=== PATIENT | male | born 1945 | race Caucasian/White ===

== ENCOUNTER 2020-12-12 04:13 | Inpatient (IN) | payer MEDICARE, BC ==
[~2020-12-12] VITALS: Ht 172.7 cm; Wt 87.8 kg
[2020-12-12] MEDS ORDERED: heparin 25,000 UNIT/250ml bag 250 ML IV SCH (04:30)
[2020-12-12] MEDS ORDERED: heparin 10,000 units/1 ML INJ IV PRN (04:45)
[2020-12-12 05:08] LABS: BASOPHILS # (AUTO) 0.1 X10'3 (0-0.2); BASOPHILS % (AUTO) 1.5 % (0-1); EOSINOPHILS % (AUTO) 0.2 % (0-6); HEMATOCRIT 47.9 % (42.0-52.0); HEMOGLOBIN 16.2 g/dl (14.0-17.9); LYMPHOCYTES # (AUTO) 0.7 X10'3 (1.1-4.8); LYMPHOCYTES % (AUTO) 16.9 % (21-51); MEAN CORPUSCULAR HEMOGLOBIN 30.9 PG (27.0-31.0); MEAN CORPUSCULAR HGB CONC 33.7 g/dL (33.0-36.5); MEAN CORPUSCULAR VOLUME 91.4 FL (78-98); MEAN PLATELET VOLUME 7.6 FL (7.4-10.4); MONOCYTES # (AUTO) 0.7 X10'3 (0-0.9); MONOCYTES % (AUTO) 15.9 % (2-12); NEUTROPHILS # (AUTO) 2.8 X10'3 (1.8-7.7); NEUTROPHILS % (AUTO) 65.5 % (42-75); PLATELET COUNT 138 X10'3 (140-440); RED BLOOD COUNT 5.24 X10'6 (4.70-6.10); RED CELL DISTRIBUTION WIDTH 13.5 % (11.5-14.5); WHITE BLOOD COUNT 4.3 X10'3 (4.5-11.0)
[2020-12-12 05:11] LABS: ALANINE AMINOTRANSFERASE 45 U/L (12-78); ALBUMIN 3.2 G/DL (3.4-5.0); ALBUMIN/GLOBULIN RATIO 0.8 (1.1-1.5); ALKALINE PHOSPHATASE 90 IU/L (46-116); ANION GAP 11 (8-16); ASPARTATE AMINO TRANSFERASE 57 U/L (10-37); BILIRUBIN,TOTAL 0.6 MG/DL (0.1-1.0); BLOOD UREA NITROGEN 15 MG/DL (7-18); CHLORIDE 102 MMOL/L (99-107); CREATININE 1.15 MG/DL (0.60-1.10); GLUCOSE 103 MG/DL (70-104); POTASSIUM 3.1 MMOL/L (3.5-5.1); SODIUM 139 MMOL/L (135-145); TOTAL CARBON DIOXIDE 26.5 MMOL/L (24-32); eGFR 62 ML/MIN
[2020-12-12 05:19] LABS: MAGNESIUM 2.7 MG/DL (1.5-2.4)
[2020-12-12 05:23] LABS: PARTIAL THROMBOPLASTIN TIME 98 SECONDS (22-32)
[2020-12-12] MEDS ORDERED: HYDR25TA5 PO (05:35)
[2020-12-12] MEDS ORDERED: LOSA25TA96 PO (05:35)
[2020-12-12 05:37] LABS: PLATELET ESTIMATE DECREASED; TOTAL CELLS COUNTED 100
[2020-12-12] MEDS ORDERED: normal saline 1000ml 1,000 ML IV SCH (05:50)
[2020-12-12] MEDS ORDERED: aminophylline 250mg/10ml inj. IV PRN (05:50)
[2020-12-12] MEDS ORDERED: metoprolol tartrate 1mg/ml inj IV PRN (05:50)
[2020-12-12] MEDS ORDERED: ondansetron/PF 4mg/2ml inj IV PRN (05:50)
[2020-12-12] MEDS ORDERED: PERFLUTREN PROTEIN-A MICROSPHR (Optison) 0.22 MG/ML 3ML VIAL IV PRN (05:50)
[2020-12-12] MEDS ORDERED: acetaminophen 325mg tablet PO PRN (05:50)
[2020-12-12] MEDS ORDERED: magnesium hydroxide 30ml (MOM) UD suspension PO PRN (05:50)
[2020-12-12] MEDS ORDERED: regadenoson 0.4mg/5ml syringe IV PRN (05:50)
[2020-12-12] MEDS ORDERED: potassium Cl 40MEQ/1/2NS 520ml 520 ML IV PRN ×2 (05:50)
[2020-12-12] MEDS ORDERED: potassium Cl 20 mEq SR tablet PO PRN ×2 (05:50)
[2020-12-12] MEDS ORDERED: mag hydrox/Alum hydrox/simeth 30ml oral suspension PO PRN (05:50)
[2020-12-12] MEDS ORDERED: nitroGLYCERIN 0.4mg SUBLingual tab SL PRN (05:50)
[2020-12-12] MEDS ORDERED: HYDROchlorothiazide 25mg tablet PO SCH (08:00)
[2020-12-12] MEDS ORDERED: K and/or MAG REPLACEMENT MC SCH (08:00)
[2020-12-12] MEDS ORDERED: docusate sod 100mg capsule PO SCH (08:00)
[2020-12-12] MEDS ORDERED: aspirin 325mg tablet, delayed-release (Ecotrin) PO SCH (08:00)
[2020-12-12] MEDS ORDERED: losartan 25mg tablet PO SCH (08:00)
[2020-12-12 08:30] LABS: D-DIMER 0.98 MG/L FEU (0-0.50)
[2020-12-12 08:33] LABS: C-REACTIVE PROTEIN 0.67 MG/DL (0.0-0.5); FERRITIN 2077 NG/ML (26-388); LACTATE DEHYDROGENASE 244 U/L (85-227)
[2020-12-12 08:46] VITALS: BP 147/89
[2020-12-12 10:00] VITALS: BP 138/80
[2020-12-12] MEDS ORDERED: iohexol 350MG/ML 100ml bottle IV ONE (11:04)
[2020-12-12] MEDS ORDERED: ASPI-1071 PO (13:53)
[2020-12-12] MEDS ORDERED: LISI10TA27 PO (13:53)
[2020-12-12] MEDS ORDERED: POTA20TA19 PO (13:54)
[2020-12-12] MEDS ORDERED: FURO20TA4 PO (13:55)
[2020-12-12 14:00] VITALS: BP 161/89
--- NOTE | 2020-12-12 14:25 | NUR ---
Entered pt room to get pt ready for stress test and pt said he did not want any further tests. Pt stated Dr. Youngblood came up and is discharging him today and said he will follow up with his audio video technician in 2 weeks. Informed Nuc Med of pt and request to cancel stress test and CTA.
[2020-12-12 17:00] VITALS: BP 152/93
--- NOTE | 2020-12-12 18:33 | NUR ---
received report from day RN. noted pt tele and IV discontinued and dressed. waiting for ride from .
--- NOTE | 2020-12-12 19:12 | NUR ---
Pt. discharged home with his .Pt. was wheeled out side to parking lot ,placed in the back of his car.
== END 2020-12-12 19:07 | disposition home or self-care (01) | DRG 280 ==
LOC: ER 04:13 → ED HOLD 05:50 → ORTHO 4S 07:25
PROVIDERS: ADMIT Internal Medicine; ATTEND Internal Medicine
DX: I21.4 Non-ST elevation (NSTEMI) myocardial infarction (principal); U07.1 COVID-19; I12.9 Hypertensive chronic kidney disease with stage 1 through stage 4 chronic kidney disease, or unspecified chronic kidney disease; R19.7 Diarrhea, unspecified; N18.30 Chronic kidney disease, stage 3 unspecified; Z87.891 Personal history of nicotine dependence; Z79.899 Other long term (current) drug therapy
CPT/HCPCS: 36415; 71045; 80053; 82728; 83615; 83735; 83880; 84484; 85007; 85025; 85379; 85384; 85610; 85730; 86140; 93005; 93306; 96365; 99285; G0378; J1644; J3480; J7030; Q9967